=== PATIENT | male | born 1945 | race Caucasian/White ===

== ENCOUNTER 2020-02-14 14:25 | Observation (INO) | payer OTHER, SELFPAY ==
[~2020-02-14] VITALS: Ht 165.1 cm; Wt 85.5 kg
[2020-02-14 14:41] VITALS: Ht 165.1 cm; Wt 85.5 kg
[2020-02-14 15:39] LABS: BASOPHIL % 0 % (0-2); PLATELET COUNT 180 x10^3mcL (130-400); RED CELL DISTRIBUTION WIDTH 13.9 % (11.5-14.5)
[2020-02-14 15:41] LABS: CALCIUM 8.3 mg/dL (8.5-10.1); CARBON DIOXIDE 22.9 mmol/L (21-32); CHLORIDE SERUM 102 mmol/L (98-107); CREATININE SERUM 1.1 mg/dL (0.7-1.3); GLUCOSE SERUM 187 mg/dL (74-106); POTASSIUM SERUM 4.1 mmol/L (3.5-5.1); SODIUM SERUM 137 mmol/L (136-145)
[2020-02-14 15:55] LABS: ALKALINE PHOSPHATASE 48 U/L (46-116); ALT/SGPT 61 U/L (16-63); AST/SGOT 35 U/L (15-37); BILIRUBIN TOTAL 0.3 mg/dL (0.20-1.00); LIPASE 183 IU/L (73-393); T4(THYROXINE) 7.4 ug/dL (4.7-13.3); TOTAL PROTEIN, SERUM 7.3 g/dL (6.4-8.2)
[2020-02-14 15:56] LABS: ALBUMIN 2.7 g/dL (3.4-5.0); CHOLESTEROL 109 mg/dL (<200); HDL CHOLESTEROL 28 mg/dL (40-60)
[2020-02-14 17:44] LABS: microscopic required? YES; urine erythrocyte 2+ (NEGATIVE)
[2020-02-14 18:07] VITALS: BP 124/63
[2020-02-15 06:30] VITALS: BP 119/61
[2020-02-15 07:01] LABS: CALCIUM 8.5 mg/dL (8.5-10.1); CARBON DIOXIDE 24.1 mmol/L (21-32); CHLORIDE SERUM 103 mmol/L (98-107); CREATININE SERUM 0.9 mg/dL (0.7-1.3); GLUCOSE SERUM 136 mg/dL (74-106); POTASSIUM SERUM 3.9 mmol/L (3.5-5.1); SODIUM SERUM 136 mmol/L (136-145)
[2020-02-15 07:22] LABS: BASOPHIL % 0.2 % (0-2); PLATELET COUNT 191 x10^3mcL (130-400); RED CELL DISTRIBUTION WIDTH 13.8 % (11.5-14.5)
[2020-02-15 09:00] VITALS: BP 131/66
[2020-02-15 11:41] VITALS: BP 126/60
[2020-02-15 16:23] VITALS: BP 145/59
[2020-02-15 21:15] VITALS: BP 129/71
[2020-02-16 06:34] VITALS: BP 146/73
[2020-02-16 09:56] VITALS: BP 129/66
[2020-02-16] MEDS ORDERED: ZITHROMAX250 MG PO (12:58)
[2020-02-16] MEDS ORDERED: ROC1I IV (12:59)
[2020-02-16 13:31] VITALS: BP 143/69
[2020-02-16 15:26] VITALS: BP 143/69
== END 2020-02-16 18:10 ==
LOC: ED 14:25 → DU 16:06
PROVIDERS: Emergency Medicine; ADMIT Hospitalist
DX: U07.1 COVID-19 (principal); J12.89 Other viral pneumonia; R05 Cough; R06.02 Shortness of breath; E11.9 Type 2 diabetes mellitus without complications; I10 Essential (primary) hypertension
CPT/HCPCS: 82962; 85378; 87804; G0378; J0456; J0696; J1644; J7030; Q0092; U0003-CS